=== PATIENT | female | born 2000 | race Caucasian/White ===

== ENCOUNTER 2022-05-12 18:24 | Emergency (ER) | payer OTHER ==
[~2022-05-12] VITALS: Ht 165.1 cm; Wt 72.6 kg
[~2022-05-12 18:24] MED LIST: ONDA4TAB PO
[2022-05-12 18:33] VITALS: BP 134/89
--- NOTE | 2022-05-12 21:35 | NUR ---
CALLED NUMBER ON FILE, SPOKE TO LLOYD, STATES SHE IS NO LONGER HERE
--- NOTE | 2022-05-12 21:35 | NUR ---
RONNY AND CALLED PT FROM LOBBY AND OUTSIDE, NO ANSWER.
== END 2022-05-12 21:36 | disposition left against medical advice (07) ==
LOC: MED 18:24
DX: R11.0 Nausea (principal); Z53.21 Procedure and treatment not carried out due to patient leaving prior to being seen by health care provider